=== PATIENT | male | born 1950 | race Asian ===

== ENCOUNTER 2017-08-16 06:51 | Day surgery (SDC) | payer BC ==
[2017-08-15 08:11] VITALS: BMI 20.3
--- NOTE | 2017-08-15 15:30 | HP ---
- Patient Scheduled date of Surgery: 08/16/17 Scheduled Surgical Procedure: Phacoemulsification and cataract extraction with PCIOL Affected Eye: Left Chief Complaint (Indication for surgery): Decreased vision affecting ADLs - Ocular History Other Eye History: Other (PVD od, amaurosis fugax os) Eye Medications: vigamxo - Medical History Illnesses: Other (BPH, depression and anxiety) Current Medications: Ambulatory Orders Citalopram Hydrobromide [Celexa -] 20 mg PO DAILY 08/15/17 Mirabegron [Myrbetriq] 25 mg PO DAILY 08/15/17 clonazePAM [Klonopin -] 0.5 mg PO DAILY 08/15/17 Allergies/Adverse Reactions: Allergies Allergy/AdvReac Type Severity Reaction Status Date / Time No Known Drug Allergies Allergy Verified 08/15/17 08:13 Ocular Examination - Best Corrected Visual Acuity Distance: Right eye: 20/20 Distance: Left eye: 20/40 - External/Slit Lamp Examination Abnormalities: arcus senilis - Intraocular Pressure Intraocular Pressure - Right eye: 10 Intraocular Pressure-Left eye: 10 - Lens Lens: 2+ NS - Vitreous/Retina Vitreous/Retina: c:d 0.35 m/v/p wnl - Special Examination M - Right eye: +1.50 -0.50 x 090 M - Left eye: -1.75 -0.50 x 075 K - Right eye: 41.50/08a665 K - Left eye: 41/41.5 x120 AL - Right eye: 24.48 AL - Left eye: 24.63 IOL bag: +19.5 d hoya 251 IOL sulcus: +19.0 d hoya 231 IOL AC: +16.5 d MTA 4uo - Impression Impression: Cataract Left Eye - Plan Plan: Phacoemulsification and cataract extraction - IOL Left eye Post-hospital care will be provided in office on: 08/17/17
--- NOTE | 2017-08-15 15:31 | HP ---
History & Physical Update - History History: No Change - Physical Physical: No Change - Assessment Assessment: No Change - Plan Plan: No Change
[~2017-08-16 06:51] MED LIST: DICLOFENAC SODIUM 0.1% OPHTHALMIC 2.5ML BOTTLE OP SCH; TOBRAMYCIN/DEXAMETHASONE OPHTH. OINTMENT 1 TUBE TP ONE
[2017-08-16] MEDS ORDERED: CIPROFLOXACIN 0.3% EYE DROPS 5 ML BOTTLE ONE (07:10)
[2017-08-16] MEDS ORDERED: TROPICAMIDE 0.5% OPHTHALMIC SOLN 15 ML BOTTLE ONE (07:10)
[2017-08-16] MEDS ORDERED: FLURBIPROFEN 0.03% OPHTH SOLN 2.5 ML BOTTLE ONE (07:10)
[2017-08-16] MEDS ORDERED: PHENYLEPHRINE 2.5% OPHTH SOLN 15 ML BOTTLE ONE (07:11)
[2017-08-16] MEDS ORDERED: TOBRAMYCIN/DEXAMETHASONE OPHTH. OINTMENT 1 TUBE ONE (07:17)
[2017-08-16] MEDS ORDERED: EPINEPHrine/PF 1 MG/1 ML (1:1,000) AMPULE ONE (07:17)
[2017-08-16] MEDS ORDERED: LIDOCAINE HCL/PF 1% SDV 5ML VIAL ONE (07:17)
[2017-08-16] MEDS ORDERED: LIDOCAINE HCL 2% JELLY (5 ML/TUBE) ONE (07:17)
[2017-08-16 07:25] VITALS: TEMP 97.8
[2017-08-16] MEDS: CIPROFLOXACIN HCL 0.3% OPHTH 2.5ML BOTTLE OP SCH ×3 (07:30→07:43)
[2017-08-16] MEDS: PHENYLEPHRINE 2.5% OPHTH SOLN 15 ML BOTTLE OP SCH ×3 (07:30→07:43)
[2017-08-16] MEDS ORDERED: FLURBIPROFEN 0.03% OPHTH SOLN 2.5 ML BOTTLE OP ONE ×3 (07:30→07:43)
[2017-08-16] MEDS: TROPICAMIDE 1% OPHTH SOLN 15 ML BOTTLE OP SCH ×3 (07:30→07:43)
[2017-08-16] MEDS ORDERED: ACETAMINOPHEN 325 MG TABLET (FP) PO PRN (08:00)
[2017-08-16] MEDS ORDERED: MIDAZOLAM HCL 2 MG/2 ML SINGLE DOSE VIAL ONE (08:43)
[2017-08-16] MEDS ORDERED: LIDOCAINE HCL 2% JELLY (5 ML/TUBE) TP ONE (08:50)
[2017-08-16] MEDS ORDERED: POVIDONE-IODINE 5% OPHTHALMIC PREP 30 ML SOLUTION OS ONE (08:53)
[2017-08-16] MEDS ORDERED: LIDOCAINE HCL 1% PRESERVATIVE FREE - 30ML VIAL IO ONE (09:01)
[2017-08-16] MEDS ORDERED: BSS (NA/CA/MG/K) BALANCED SALT SOLUTION OPHTH SOLN 15 ML BOTTLE OS ONE (09:01)
[2017-08-16] MEDS ORDERED: EPINEPHrine/PF 1 MG/1 ML (1:1,000) AMPULE SQ ONE ×2 (09:01→09:17)
[2017-08-16] MEDS ORDERED: CHONDROITIN SU A/HYALUR SOD 1 KIT IO ONE (09:01)
[2017-08-16] MEDS ORDERED: TOBRAMYCIN/DEXAMETHASONE OPHTH. OINTMENT 1 TUBE TP ONE (09:31)
--- NOTE | 2017-08-16 09:40 | OP ---
Ophthalmology Operative Note Pre-Operative Diagnosis: Cataract Affected Eye: Left Operation: Phacoemulsification and cataract extraction with PCIOL Findings: cataract left eye Post-Operative Diagnosis: Same as Pre-op Scientific Process Operator: Shaun Anesthesiologist: Adolfo Triana Anesthesia: Topical Specimens Removed: none Estimated blood loss: none Drains & Tubes with Location: none Operative Report Dictated: Yes
--- NOTE | 2017-08-16 09:59 | HP ---
History & Physical Update - History History: No Change - Physical Physical: No Change - Assessment Assessment: No Change - Plan Plan: No Change (reviewed h and p from DR. Contreras 08/07/17)
[2017-08-16 10:16] VITALS: BP 129/64; PULSE 64
--- NOTE | 2017-08-16 13:14 | OP ---
DATE OF OPERATION: 08/16/2017 PREOPERATIVE DIAGNOSIS: Nuclear sclerotic cataract, left eye. POSTOPERATIVE DIAGNOSIS: Nuclear sclerotic cataract, left eye. PROCEDURE: Phacoemulsification and cataract extraction with insertion of posterior chamber intraocular lens, left eye. SURGEON: Anh Ruelas MD TRANSFER WORKER: None. ANESTHESIA: Topical. ANESTHESIOLOGIST: Adolfo Triana MD OPERATIVE PROCEDURE: The patient received 2% lidocaine gel and was then gently sedated and prepped and draped in the usual sterile fashion so as to expose only the left eye. Ophthalmic Betadine was instilled into the inferior fornix, and the lashes were taped out of the surgical field. An eyelid speculum was placed into the left eye. A paracentesis was made in inferior clear cornea at the limbus. Next, 0.5 mL of non-preserved lidocaine 1% was injected into the anterior chamber, and 1 mL of dilute epinephrine 1:10,000 was then injected into the anterior chamber. Viscoelastic material was instilled into the anterior chamber via the paracentesis. A 2.4-mm keratome was then used to create the main incision in temporal clear cornea at the limbus. A continuous curvilinear capsulorrhexis was performed using a cystotome and Utrata forceps. Hydrodissection of the lens cortex was performed using BSS on a cannula until the nucleus was noted to be freely rotating. The phacoemulsification tip was inserted via the main wound and used to sculpt 2 perpendicular grooves into the lens nucleus. The nucleus was crackled into 4 quadrants. Each quadrant was lifted out of the capsule into the iris plane and individually phacoemulsified. The remaining cortical material was then aspirated using the irrigation and aspiration port. The capsular bag was inflated using Provisc, and a preloaded Hoya lens model 251, power +19.5 diopters was injected into the capsular bag and centered using a Sinskey hook. The residual viscoelastic material was removed from the anterior chamber using irrigation and aspiration. The wound edges were hydrated using BSS. The wound was tested for leakage. It was found to be watertight. TobraDex ointment was placed in the eye, and the speculum was removed from the eye. The eyelid was closed. A sterile dressing and shield were placed over the eye, and the patient was transferred to the recovery room in stable condition, told to follow up in 1 day. ANH RUELAS M.D. [id number]
== END 2017-08-16 10:17 | disposition home or self-care (01) ==
LOC: JASU-SURG 06:51
PROVIDERS: ATTEND Ophthalmology
PROC: 08RK3JZ Replacement of Left Lens with Synthetic Substitute, Percutaneous Approach (ICD-10-PCS; principal; 2017-08-16 08:30)
DX: H26.9 Unspecified cataract (principal)